=== PATIENT | female | born 1970 | race Asian ===

== ENCOUNTER → 2016-03-24 | Outpatient (CLI) | payer BC ==
[~2016-03-24] MED LIST: ASCORBIC ACID500 M3 PO; FERROUS SULFAT325 MG PO; OMEPRAZOLE20 M2 PO
== END | disposition home or self-care (01) ==
LOC: CDC 11:33
DX: R00.1 Bradycardia, unspecified (principal); D24.2 Benign neoplasm of left breast
CPT/HCPCS: 93000

== ENCOUNTER 2016-04-01 09:04 | Day surgery (SDC) | payer BC ==
[~2016-04-01] VITALS: Ht 160 cm; Wt 53.1 kg
[~2016-04-01 09:04] MED LIST changes: +TYLENOL EXTRA500 MG PO; +VITAMIN B-1250 MC3 PO; +VITAMIN D22000 UNIT PO
[2016-04-01 09:53] VITALS: BP 105/55
[2016-04-01 14:30] VITALS: BP 107/38
[2016-04-01 15:30] VITALS: BP 98/44
== END 2016-04-01 15:59 | disposition home or self-care (01) ==
LOC: SDC 09:04
PROC: 0HBU0ZZ Excision of Left Breast, Open Approach (ICD-10-PCS; principal; 2016-04-01)
DX: D24.2 Benign neoplasm of left breast (principal); R01.1 Cardiac murmur, unspecified; K21.9 Gastro-esophageal reflux disease without esophagitis
CPT/HCPCS: 88305; 88307; J0131; J0690; J1100; J2250; J2405; J3010; S0020